=== PATIENT | male | born 1985 | race African-American/Black ===

== ENCOUNTER 2017-09-04 04:57 | Inpatient (IN) | payer SELFPAY ==
[~2017-09-04] VITALS: Ht 182.9 cm; Wt 165.1 kg
[2017-09-04] MEDS ORDERED: SODIUM CHLORIDE 0.9% 1,000 ML IV ONE (06:34)
[2017-09-04 07:05] LABS: HEMATOCRIT. 36.8 % (42.0-52.0); HEMOGLOBIN. 12.3 g/dL (14.0-18.0); MEAN CORPUSCULAR HEMOGLOBIN 29.5 pg (28.0-32.0); MEAN CORPUSCULAR VOLUME 88.1 fL (80.0-94.0); MEAN PLATELET VOLUME 7.1 fl (7.4-10.4); PLATELET 455 x1000/uL (130-400); RED BLOOD CELL COUNT 4.18 mill/uL (4.7-6.1); RED CELL DISTRIBUTION WIDTH 13.8 % (11.6-14.6)
[2017-09-04] MEDS ORDERED: VANCOMYCIN 1 G PREMIX 200 ML IV ONE (07:30)
[2017-09-04] MEDS ORDERED: LIDOCAINE HCL 1% 20ML VIAL (Pyxis) INJ MC ONE (07:30)
[2017-09-04 07:31] LABS: PLATELET ESTIMATE SLIGHTLY INCREASED
[2017-09-04 08:06] LABS: INR 1.1; PROTHROMBIN TIME 11.2 sec (9.4-11.6)
[2017-09-04 08:41] LABS: CARBON DIOXIDE 26 mEq/L (21-32); CHLORIDE 103 mEq/L (98-107)
[2017-09-04 11:35] VITALS: BP 154/94
[2017-09-04 12:00] VITALS: BP 154/94
[2017-09-04] MEDS ORDERED: CLONIDINE 0.1MG TABLET PO PRN (12:00)
[2017-09-04] MEDS ORDERED: ONDANSETRON HCL 4MG/2ML VIAL IV PRN (12:00)
[2017-09-04] MEDS ORDERED: ENOXAPARIN 40MG/0.4ML SYR SUBCUT SCH (12:00)
[2017-09-04] MEDS: PIPERACILLIN/TAZ 3.375G PREMIX 50 ML IV SCH ×2 (13:11→17:36)
[2017-09-04] MEDS ORDERED: PIPERACILLIN/TAZ 3.375G PREMIX 50 ML IV SCH (14:00)
[2017-09-04] MEDS: VANCOMYCIN 1250MG in DEXTROSE 5% WATER 250ML IV SCH ×2 (14:26→21:57)
[2017-09-04 16:00] VITALS: BP 132/72
[2017-09-04] MEDS: HYDROCODONE/ACETAMINOPHEN 5/325MG TABLET PO PRN (16:28)
[2017-09-04 20:06] VITALS: BP 122/70
[2017-09-04] MEDS ORDERED: POTASSIUM CHLORIDE 20MEQ TABLET SR PO NR (23:00)
[2017-09-04 23:45] VITALS: BP 135/93
[2017-09-05] MEDS: PIPERACILLIN/TAZ 3.375G PREMIX 50 ML IV SCH ×5 (00:09→23:18)
[2017-09-05 04:00] VITALS: BP 151/75
[2017-09-05] MEDS: HYDROCODONE/ACETAMINOPHEN 5/325MG TABLET PO PRN ×2 (05:48→12:41)
[2017-09-05] MEDS: VANCOMYCIN 1250MG in DEXTROSE 5% WATER 250ML IV SCH ×3 (06:58→21:36)
[2017-09-05 07:11] LABS: HEMATOCRIT. 34.6 % (42.0-52.0); HEMOGLOBIN. 11.5 g/dL (14.0-18.0); MEAN CORPUSCULAR HEMOGLOBIN 29.4 pg (28.0-32.0); MEAN PLATELET VOLUME 7.1 fl (7.4-10.4); PLATELET 426 x1000/uL (130-400); RED BLOOD CELL COUNT 3.93 mill/uL (4.7-6.1); RED CELL DISTRIBUTION WIDTH 13.5 % (11.6-14.6)
[2017-09-05 08:00] VITALS: BP 144/66
[2017-09-05 08:39] LABS: CARBON DIOXIDE 29 mEq/L (21-32); CHLORIDE 101 mEq/L (98-107)
[2017-09-05] MEDS: ASPIRIN 81MG EC TABLET PO SCH (08:55)
[2017-09-05] MEDS: ACETAMINOPHEN 325MG TABLET PO PRN (08:55)
[2017-09-05 12:00] VITALS: BP 127/76
[2017-09-05] MEDS: ENOXAPARIN 40MG/0.4ML SYR SUBCUT SCH ×3 (12:30→20:04)
[2017-09-05 12:31] LABS: PLATELET ESTIMATE INCREASED
[2017-09-05] MEDS: MORPHINE SULFATE 2 MG/ML CPJ (NOT FOR IM USE) IV PRN ×2 (15:21→23:19)
[2017-09-06 00:01] VITALS: BP 144/84
[2017-09-06 04:00] VITALS: BP 149/85
[2017-09-06] MEDS: PIPERACILLIN/TAZ 3.375G PREMIX 50 ML IV SCH ×3 (05:36→17:36)
[2017-09-06] MEDS: VANCOMYCIN 1250MG in DEXTROSE 5% WATER 250ML IV SCH ×3 (06:22→22:00)
[2017-09-06 08:00] VITALS: BP 135/84
[2017-09-06] MEDS: ASPIRIN 81MG EC TABLET PO SCH (08:41)
[2017-09-06] MEDS: ENOXAPARIN 40MG/0.4ML SYR SUBCUT SCH ×2 (08:41→21:00)
[2017-09-06 12:00] VITALS: BP 148/89
[2017-09-06 16:00] VITALS: BP 162/82
[2017-09-06] MEDS: ACETAMINOPHEN 325MG TABLET PO PRN (17:36)
[2017-09-06 20:00] VITALS: BP 139/60
[2017-09-07] VITALS: BP 130/79
[2017-09-07] MEDS: PIPERACILLIN/TAZ 3.375G PREMIX 50 ML IV SCH ×3 (00:29→13:49)
[2017-09-07 04:00] VITALS: BP 128/76
[2017-09-07] MEDS: VANCOMYCIN 1250MG in DEXTROSE 5% WATER 250ML IV SCH ×2 (05:21→13:46)
[2017-09-07] MEDS: ASPIRIN 81MG EC TABLET PO SCH (08:31)
[2017-09-07] MEDS: ENOXAPARIN 40MG/0.4ML SYR SUBCUT SCH (09:00)
[2017-09-07 11:43] VITALS: BP 130/95
== END 2017-09-07 16:15 | disposition home or self-care (01) | DRG 383 ==
LOC: ER 04:57 → 7WST 10:11 → ENRESERV 10:33
PROVIDERS: ADMIT Hospitalist; ATTEND Hospitalist
DX: L03.115 Cellulitis of right lower limb (principal); Z68.42 Body mass index [BMI] 45.0-49.9, adult; E66.01 Morbid (severe) obesity due to excess calories; I87.8 Other specified disorders of veins
CPT/HCPCS: 10060; 36415; 80053; 80202; 83605; 85025; 85610; 87040; 87086; 93971; 96361; 96365; 99285; C1893; J1650; J2270; J2543; J3370; J3490; J7030; J7040; J7050; J7060